=== PATIENT | male | born 1960 | race Caucasian/White ===

== ENCOUNTER 2017-11-28 15:32 | Inpatient (IN) ==
--- NOTE | 2017-11-28 16:06 | Emergency Department Note ---
Disposition Clinical Impression: Generalized weakness, GLORIA (acute kidney injury) Disposition: Admitted As Inpatient Condition: Fair Time of Disposition: 18:08 General Adult HPI - General Chief complaint: ED Dizziness Stated complaint: N/V Time Seen by Provider: 11/28/17 15:51 Source: patient Limitations: no limitations Nursing Notes Reviewed: Yes Vital Signs Reviewed: Yes - History of Present Illness HPI Narrative: Patient is a 56-year-old male who presents to [facility] ED with a chief complaint of generalized weakness, decreased appetite, nausea, difficulty with urination. Patient states he has an LVAD in place since 1 year prior. States this was done at the [facility]. States he has been evaluated up there recently and they have told him that nothing is wrong with him. However he is concerned that he is so weak at home that he is going to fall and pull his LVAD connection out and . Most recently he has had nausea with vomiting, blood in his stool and some generalized abdominal pain. Past medical history significant for CAD with stents, poor EF 15%, hypertension, hyperlipidemia. Onset (ago): day(s) Radiation: non-radiation Pain Severity: moderate Pain Scale: 8 Consistency: Worsening Improves with: nothing Worsens with: nothing Associated symptoms: Reports: loss of appetite, nausea/vomiting, weakness. Denies: chest pain, cough, fever/chills, shortness of breath Treatments Prior to Arrival: none - Related Data Home Medications Medication Instructions Recorded Confirmed Albuterol Neb [Proventil Neb] 2.5 mg IH TID 04/25/16 03/25/17 BuPROPion [Wellbutrin] 100 mg PO BID 05/05/16 03/25/17 Aspirin 81 mg PO DAILY 05/06/16 03/25/17 Metoprolol XL (24 HR) Succ [Toprol 25 mg PO DAILY 05/06/16 03/25/17 Xl] LORazepam [Ativan] 0.5 mg PO DAILY PRN 08/03/16 08/03/16 Warfarin Sodium 10 mg PO DAILY 07/10/17 07/10/17 Previous Rx's Medication Instructions Recorded Amiodarone [Cordarone] 200 mg PO DAILY #30 tablet 01/04/16 Atorvastatin [Lipitor] 40 mg PO HS #30 tablet 07/09/16 Bumetanide [Bumex] 2 mg PO BID #60 tablet 07/12/16 Docusate [Colace] 100 mg PO BID PRN #0 capsule 08/05/16 GuaiFENesin ER [Mucinex] 600 mg PO BID tbbp.12hr 08/05/16 Potassium Chloride 40 meq PO ONCE #2 tab.er.prt 08/05/16 Spironolactone [Aldactone] 25 mg PO DAILY #30 tablet 08/05/16 HydrOXYzine Pamoate [Vistaril] 50 mg PO TID 14 Days capsule 09/22/16 HYDROcodone/Acet 5/325 mg [[place] 1 tab PO Q6H PRN #16 tab 03/25/17 5-325 mg] HydrOXYzine Pamoate [Vistaril] 50 mg PO Q4-6H PRN #20 capsule 03/25/17 HYDROcodone/Acet 5/325 mg [[place] 1 tab PO Q4H PRN #3 tab 03/30/17 5-325 mg] HYDROcodone/Acet 5/325 mg [[place] 1 - 2 tab PO Q6H PRN #8 tab 06/03/17 5-325 mg] Ondansetron ODT [Zofran ODT] 8 mg SL Q12HR #9 tab.rapdis 06/12/17 OxyCODONE/APAP 5/325 [Percocet 1 each PO Q6HR PRN #1 tablet 06/29/17 5/325 MG] HYDROcodone/Acet 5/325 mg [[place] 1 tab PO Q6H PRN 3 Days #12 tab 10/25/17 5-325 mg] Oxycodone HCl/Acetaminophen 1 each PO Q4HR 3 Days #15 tablet 11/22/17 [Percocet 5-325 mg Tablet] Allergies Allergy/AdvReac Type Severity Reaction Status Date / Time Enoxaparin [From Lovenox] Allergy Itching Verified 11/22/17 15:43 lisinopril Allergy Itching Verified 11/22/17 15:43 All systems ED: reviewed and negative except as stated. Past Medical History - Past Medical History Attestation: Yes The following information was validated with the patient. Source: patient Medical history: Reports: asthma, atrial fibrillation, cardiomyopathy, CHF, COPD , GERD, GI bleed, hyperlipidemia, hypertension, myocardial infarction, SVT, thyroid disease Surgical history: Reports: angioplasty/stent, pacemaker/AICD, other (Cardiac ablation for atrial fibrillation, left ventricular assist device), AICD Psychiatric history: Reports: anxiety - Social History Smoking Status: Former smoker Smokeless Tobacco Status: No Alcohol use: Reports: rarely Drug use: Reports: none Physical Exam - General Limitations: no limitations General appearance: alert, in no apparent distress - Head Head exam: atraumatic, normocephalic, normal inspection - Eye Eye exam: Present: normal appearance, EOMI - ENT ENT exam: normal exam, normal oropharynx, mucous membranes moist - Neck Neck exam: Present: normal inspection, full ROM, trachea midline - Chest Chest inspection: Present: normal inspection, symmetric chest wall rise - Respiratory Respiratory exam: Present: normal lung sounds bilaterally - Cardiovascular Cardiovascular exam: Present: regular rate, normal rhythm, normal heart sounds - Abdominal Exam Abdominal exam: Present: soft, tenderness, normal bowel sounds. Absent: distention, guarding, rebound, rigidity Abdominal tenderness: Present: diffuse, mild - Extremities Exam Extremities exam: Present: normal inspection, full ROM. Absent: tenderness, pedal edema - Back Exam Back exam: Present: normal inspection, full ROM. Absent: tenderness - Neurological Exam Neurological exam: Present: alert, oriented X3 - Psychiatric Psychiatric exam: Present: normal affect, normal mood - Skin Skin exam: Present: warm, dry, intact, normal color Course Course Narrative: Patient seen and examined. Generalized weakness along with abdominal pain nausea and blood in the stool. Labwork ordered. We will do a CT scan of abd/ pelvis. Rectal exam shows faintly trace positive blood. Patient states he does not feel safe at home and feels like he is going to fall and . Per nursing, via Doppler and manual blood pressure, the mean arterial pressure was 100 in 2 different spots. - Reevaluation(s) Reevaluation #1: CT scan unremarkable. Lab work shows mildly elevated creatinine compared to his most recent creatinine of 1.14. Due to patient's generalized weakness, will admit for PT/ OT evaluation and possible placement. Time: 18:07 Vital Signs Temperature 97.4 F L 11/28/17 15:38 Pulse Rate 57 11/28/17 15:38 Respiratory Rate 16 11/28/17 15:38 Blood Pressure 87/68 11/28/17 15:38 O2 Sat by Pulse Oximetry 97 11/28/17 15:38 Temperature 97.4 F L 11/28/17 15:38 Pulse Rate 80 11/28/17 18:16 Respiratory Rate 18 11/28/17 18:16 Blood Pressure 87/68 11/28/17 15:38 O2 Sat by Pulse Oximetry 95 11/28/17 18:16 Oxygen Delivery Oxygen Delivery Room Air Medical Decision Making - Medical Records Medical records reviewed: Yes I reviewed the patient's medical records. - Lab Data Lab results reviewed: Yes I reviewed the patient's lab results. Result diagrams: 11/28/17 16:54 11/28/17 16:54 Lab Results 11/28/17 11/28/17 11/28/17 Range/Units 16:54 16:54 16:54 WBC 10.0 (4.3-11.1) K/mcL RBC 5.81 H (4.19-5.50) M/mcL Hgb 14.6 (12.9-16.9) g/dL Hct 47.3 (37.5-50.1) % MCV 81.4 L (83.0-100.0) fL MCH 25.1 L (28.0-33.3) pg MCHC 30.9 L (31.6-35.5) g/dL RDW 16.8 H (11.5-14.5) % Plt Count 205 (140-400) K/mcL MPV 10.6 (9.4-12.4) fL Immature Gran % 0.1 (0-4) % Seg Neutrophils % 81.2 % Lymphocytes % 10.9 % Monocytes % 6.8 % Eosinophils % 0.0 % Basophils % 1.0 % Neutrophils # 8.1 (1.6-8.9) K/mcL Lymphocytes # 1.1 (0.6-4.6) K/mcL Monocytes # 0.7 (0.0-1.3) K/mcL Eosinophils # 0.0 (0.0-0.6) K/mcL Basophils # 0.1 (0.0-0.2) K/mcL Sodium 134 L (136-145) mEq/L Potassium 3.7 (3.5-5.1) mEq/L Chloride 101 (98-107) mEq/L Carbon Dioxide 26 (23-29) mEq/L BUN 21 H (6-20) mg/dL Creatinine 1.51 H (0.70-1.30) mg/dL Est GFR ( Amer) 59 L (> 60) Est GFR (Non-Af Amer) 48 L (> 60) BUN/Creatinine Ratio 14 (6-26) Glucose 86 (70-105) mg/dL Calculated Osmolality 280 (280-300) Calcium 9.7 (8.6-10.3) mg/dL Magnesium 2.1 (1.6-2.6) mg/dL Total Bilirubin 0.8 (0.3-1.0) mg/dL AST 20 (13-39) Units/L ALT 20 (7-52) Units/L Alkaline Phosphatase 79 (34-104) Units/L Troponin I 0.03 (< 0.04) ng/mL Serum Total Protein 7.5 (6.4-8.9) g/dL Albumin 4.2 (3.5-5.7) g/dL Globulin 3.3 (2.4-3.5) g/dL Albumin/Globulin Ratio 1.3 (1.1-2.2) Lipase 10 L (11-82) Units/L Urine Color (Yellow) Urine Clarity (Clear) Urine pH (5.0-8.0) pH Units Ur Specific [place] (1.010-1.025) Urine Protein (Neg-Trace) mg/dL Urine Glucose (UA) (Normal) mg/dL Urine Ketones (Negative) mg/dL Urine Blood (Negative) Urine Nitrite (Negative) Urine Bilirubin (Negative) Urine Urobilinogen (Normal) mg/dL Ur Leukocyte Esterase (Negative) Urine Microscopic RBC (0-3) per hpf Urine Microscopic WBC (0-3) per hpf Ur Squamous Epith Cells (None-Few) per lpf Urine Bacteria (None-Few) per hpf Hyaline Casts (None-Few) per lpf Ur Culture Indicated? (NO) 11/28/17 Range/Units 17:38 WBC (4.3-11.1) K/mcL RBC (4.19-5.50) M/mcL Hgb (12.9-16.9) g/dL Hct (37.5-50.1) % MCV (83.0-100.0) fL MCH (28.0-33.3) pg MCHC (31.6-35.5) g/dL RDW (11.5-14.5) % Plt Count (140-400) K/mcL MPV (9.4-12.4) fL Immature Gran % (0-4) % Seg Neutrophils % % Lymphocytes % % Monocytes % % Eosinophils % % Basophils % % Neutrophils # (1.6-8.9) K/mcL Lymphocytes # (0.6-4.6) K/mcL Monocytes # (0.0-1.3) K/mcL Eosinophils # (0.0-0.6) K/mcL Basophils # (0.0-0.2) K/mcL Sodium (136-145) mEq/L Potassium (3.5-5.1) mEq/L Chloride (98-107) mEq/L Carbon Dioxide (23-29) mEq/L BUN (6-20) mg/dL Creatinine (0.70-1.30) mg/dL Est GFR ( Amer) (> 60) Est GFR (Non-Af Amer) (> 60) BUN/Creatinine Ratio (6-26) Glucose (70-105) mg/dL Calculated Osmolality (280-300) Calcium (8.6-10.3) mg/dL Magnesium (1.6-2.6) mg/dL Total Bilirubin (0.3-1.0) mg/dL AST (13-39) Units/L ALT (7-52) Units/L Alkaline Phosphatase (34-104) Units/L Troponin I (< 0.04) ng/mL Serum Total Protein (6.4-8.9) g/dL Albumin (3.5-5.7) g/dL Globulin (2.4-3.5) g/dL Albumin/Globulin Ratio (1.1-2.2) Lipase (11-82) Units/L Urine Color Yellow (Yellow) Urine Clarity Clear (Clear) Urine pH 7.5 (5.0-8.0) pH Units Ur Specific [place] 1.019 (1.010-1.025) Urine Protein 30 H (Neg-Trace) mg/dL Urine Glucose (UA) Normal (Normal) mg/dL Urine Ketones Negative (Negative) mg/dL Urine Blood Negative (Negative) Urine Nitrite Negative (Negative) Urine Bilirubin Negative (Negative) Urine Urobilinogen Normal (Normal) mg/dL Ur Leukocyte Esterase Negative (Negative) Urine Microscopic RBC 3-5 H (0-3) per hpf Urine Microscopic WBC 0-3 (0-3) per hpf Ur Squamous Epith Cells Many H (None-Few) per lpf Urine Bacteria None Seen (None-Few) per hpf Hyaline Casts None Seen (None-Few) per lpf Ur Culture Indicated? NO (NO) - Radiology Data Radiology results reviewed: Yes I reviewed the patient's radiology results. Chest X-Ray 11/28/17 15:51 IMPRESSION: 1. Stable cardiomegaly and configuration of a left ventricular assist device. 2. No acute abnormality. D/ / 11/28/2017 16:50:20 Bacilio Shukla MD / [facility] Interpreting Provider: Bacilio Shukla MD Abdomen/Pelvis CT 11/28/17 16:08 IMPRESSION: Stable noncontrast findings. No acute abnormality suspected. D/ / Kourtney Kc Cha, MD / Kourtney Kc Cha, MD Interpreting Provider: Kourtney Kc Cha, MD - EKG Data EKG #1 EKG attestation: Yes I reviewed and interpreted this EKG. EKG results narrative: EKG done at 1617 shows electronic ventricular pacemaker paced rhythm with a rate of [address] elevation or depression. Unchanged from prior EKG done 11/22/2017. Critical Care Time Critical Care Time: Yes Total Critical Care Time: 35 Attestation: Critical care time 35 minutes managing patient's weakness. Attestation Statement - Attestation Attestation: Patient was seen with resident physician. I reviewed the history, physical, assessment and plan, and agree with the findings. I also personally evaluated this patient and had [id number] time with this patient. 56-year-old male presents to the emergency Department chief complaint of generalized weakness. Patient states that he does not feel unwell anymore. He says he is not eating or drinking. He says he falls almost every time he tries to get up. He says he was seen at [facility] approximately week ago for same complaints the findings anything abnormal. 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 He says that he just not feeling well enough or safe at home at this point. On exam vital signs pulses normal he has decreased blood pressure, which is better than it usually is. Heart mechanical. Lungs clear. Abdomen soft nontender. Extremities very dry skin been as well. Neurologically intact no focal deficits. Psych patient appears somewhat depressed. ED course we will do workup for generalized weakness. Workup was largely unremarkable terms of lab testing x-ray the abdominal CT. His EKG shows a paced rhythm. However the patient just does not feel well not to go home and he has generalized weakness. He said he time he tries to stand up he feels like is going to fall. We spoke with the hospitalist service agreed to accept him here for admission and further evaluation and treatment. Critical care time 35 minutes. Agree with resident physician assessment plan.
[2017-11-28] MEDS ORDERED: 0.9 % Sodium Chloride 500 ML IVC ONE (16:09)
[2017-11-28 17:00] LABS: Basophils # 0.1 K/mcL (0.0-0.2); Hematocrit 47.3 % (37.5-50.1); Hemoglobin 14.6 g/dL (12.9-16.9); Immature Granulocytes % 0.1 % (0-4); Lymphocytes # 1.1 K/mcL (0.6-4.6); Lymphocytes % 10.9 %; Mean Corpuscular HGB Conc 30.9 g/dL (31.6-35.5); Mean Corpuscular Hemoglobin 25.1 pg (28.0-33.3); Mean Corpuscular Volume 81.4 fL (83.0-100.0); Mean Platelet Volume 10.6 fL (9.4-12.4); Monocytes # 0.7 K/mcL (0.0-1.3); Monocytes % 6.8 %; Neutrophils # 8.1 K/mcL (1.6-8.9); Platelet Count 205 K/mcL (140-400); Red Blood Count 5.81 M/mcL (4.19-5.50); Red Cell Distribution Width 16.8 % (11.5-14.5); Segmented Neutrophils % 81.2 %
[2017-11-28 17:26] LABS: Albumin 4.2 g/dL (3.5-5.7); Albumin/Globulin Ratio 1.3 (1.1-2.2); Bilirubin,Total 0.8 mg/dL (0.3-1.0); Calcium 9.7 mg/dL (8.6-10.3); Globulin 3.3 g/dL (2.4-3.5); Magnesium 2.1 mg/dL (1.6-2.6); Potassium 3.7 mEq/L (3.5-5.1); Total Protein 7.5 g/dL (6.4-8.9); Troponin I 0.03 ng/mL (< 0.04)
[2017-11-28 17:46] LABS: Bilirubin,Urine Negative (Negative); Blood,Urine Negative (Negative); Clarity,Urine Clear (Clear); Color,Urine Yellow (Yellow); Glucose,Urine (UA) Normal (Normal); Ketones,Urine Negative (Negative); Leukocyte Esterase,Urine Negative (Negative); Nitrite,Urine Negative (Negative); PH,Urine 7.5 pH Units (5.0-8.0); Protein,Urine 30 mg/dL (Neg-Trace); Specific Gravity,Urine 1.019 (1.010-1.025); Urobilinogen,Urine Normal (Normal)
[2017-11-28 17:48] LABS: Bacteria,Urine None Seen per hpf (None-Few); Hyaline Casts,Urine None Seen per lpf (None-Few); Squamous Epithelial Cell,Urine Many per lpf (None-Few); WBC,Urine 0-3 per hpf (0-3)
[2017-11-28] MEDS ORDERED: Acetaminophen 325 MG TABLET PO PRN (18:10)
[2017-11-28] MEDS ORDERED: Naloxone 0.4 MG/ML INJ IVP PRN (18:10)
[2017-11-28] MEDS ORDERED: *HR* HYDROcodone/Acet 5/325 mg TABLET PO ONE (18:17)
--- NOTE | 2017-11-28 18:23 | Internal Med History&Physical ---
Date of Encounter: 11/28/17 Time of Encounter: 18:20 Assessment and Plan (1) Generalized weakness Current visit: Yes Status: Acute Unclear etiology. Workup was unremarkable so far in the ED. There is a mild elevation in his creatinine however not exactly sure this is causing his symptoms. Patient also reportedly has some blood in the stools. We will check stools for blood. Hemoglobin is stable. c/s GI. The patient may just need to have PTOT evaluation and placement. He was given 500 mL bolus in the ED. I would be careful with further hydration given his known low ejection fraction of 15%. We will continue to monitor. (2) GI bleed Current visit: Yes Status: Acute consult GI. check FOBT. IV PPI BID. NPO after midnight. hgb stable. H/H in am. Qualifiers: GI bleed type/associated pathology: unspecified gastrointestinal hemorrhage type Qualified Code(s): K92.2 - Gastrointestinal hemorrhage, unspecified (3) GLORIA (acute kidney injury) Current visit: Yes Status: Acute Would not give any more fluids. Patient has a known EF of 15%. Labs in the morning. (4) CHF (congestive heart failure) Current visit: No Status: Acute Chronic. Not in exacerbation. Resume home meds. Qualifiers: Heart failure type: systolic Heart failure chronicity: chronic Qualified Code(s): I50.22 - Chronic systolic (congestive) heart failure (5) CAD (coronary artery disease) Current visit: No Status: Chronic Resume home meds. Qualifiers: Coronary Disease-Associated Artery/Lesion type: [place] artery [place] vs. transplanted heart: [place] heart Associated angina: with unspecified angina Qualified Code(s): I25.119 - Atherosclerotic heart disease of [place] coronary artery with unspecified angina pectoris (6) HTN (hypertension) Current visit: No Status: Chronic Resume home antihypertensives. Qualifiers: Hypertension type: unspecified Qualified Code(s): I10 - Essential (primary ) hypertension (7) Atrial fibrillation Current visit: Yes Status: Acute hold coumadin. Check INR STAT. 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 Internal Medicine - H&P: HPI Chief complaint: Weakness Admitted From: Emergency Dept Plans for Post Hospital Care: Home History of present illness: Mr. Scruggs is a 56 year old male with history of paroxysmal A. fib status post AV node ablation, ischemic dilated cardiomyopathy with an EF of 15% status post LVAD, retention, COPD, coronary disease with stents, history of CVA, chronic kidney disease, hyperlipidemia, GERD who presents to [facility] ED with a chief complaint of generalized weakness, decreased appetite, nausea, difficulty with urination. There is also reported blood in his stool and some generalized abdominal pain. Says he is seeing bright red blood with each stool the last 3 weeks. Has been weak the last 3 days or so. Uses a walker at times but not always. On coumadin. In the ED workup was mostly unremarkable except for some mild elevated creatinine. A CT abdomen and pelvis came back with no acute findings. Chest x-ray showed stable cardiomegaly and LVAD. Urinalysis with no UTI. Vitals were stable. He is afebrile. Denies any fever, chills, headache, blurry vision, chest pain, shortness of breath, diarrhea, constipation, neurological symptoms. Past Med Surg Social Fam HX - Past Medical History Medical history: asthma, atrial fibrillation, cardiomyopathy, CHF, COPD, GERD, GI bleed, hyperlipidemia, hypertension, myocardial infarction, SVT, thyroid disease Psychiatric history: anxiety - Past Surgical History Surgical History: angioplasty/stent, pacemaker/AICD, other (Cardiac ablation for atrial fibrillation, left ventricular assist device), AICD - Social History Smoking Status: Former smoker Smokeless Tobacco Status: No Alcohol use: rarely Drug use: none - Family History Father Adopted: No Family Member Ethnicity: Non- Living Status: Still Living Hx Family Cardiac Disorders: No Hx Family Respiratory Disorders: No Hx Family Cancer: No Hx Family GI Disorders: No Hx Family Endocrine Disorder: Yes Hx Family Neuromuscular Disorders: No Hx Family Neurologic Disorders: No Hx Family HEENT Disorders: No Hx Family Autoimmune Disorders: No Mother Adopted: No Family Member Ethnicity: Non- Living Status: Still Living Hx Family Cardiac Disorders: Yes (multiple RI) Hx Family Respiratory Disorders: No Hx Family Cancer: No Hx Family GI Disorders: No Hx Family Endocrine Disorder: Yes (DM) Hx Family Neuromuscular Disorders: No Hx Family Neurologic Disorders: Yes (,ledt side paralysis,shaking) Hx Family HEENT Disorders: Yes (glaucoma, multiple strep throat) Hx Family Autoimmune Disorders: No Internal Medicine - H&P: Meds Amiodarone [Cordarone] 200 mg PO DAILY #30 tablet 01/04/16 [Rx] Albuterol Neb [Proventil Neb] 2.5 mg IH TID 04/25/16 [History] BuPROPion [Wellbutrin] 100 mg PO BID 05/05/16 [History] Aspirin 81 mg PO DAILY 05/06/16 [History] Metoprolol XL (24 HR) Succ [Toprol Xl] 25 mg PO DAILY 05/06/16 [History] Atorvastatin [Lipitor] 40 mg PO HS #30 tablet 07/09/16 [Rx] Bumetanide [Bumex] 2 mg PO BID #60 tablet 07/12/16 [Rx] LORazepam [Ativan] 0.5 mg PO DAILY PRN 08/03/16 [History] Docusate [Colace] 100 mg PO BID PRN #0 capsule 08/05/16 [Rx] GuaiFENesin ER [Mucinex] 600 mg PO BID tbbp.12hr 08/05/16 [Rx] Potassium Chloride 40 meq PO ONCE #2 tab.er.prt 08/05/16 [Rx] Spironolactone [Aldactone] 25 mg PO DAILY #30 tablet 08/05/16 [Rx] HydrOXYzine Pamoate [Vistaril] 50 mg PO TID 14 Days capsule 09/22/16 [Rx] HYDROcodone/Acet 5/325 mg [[place] 5-325 mg] 1 tab PO Q6H PRN #16 tab 03/25/17 [Rx ] HydrOXYzine Pamoate [Vistaril] 50 mg PO Q4-6H PRN #20 capsule 03/25/17 [Rx] HYDROcodone/Acet 5/325 mg [[place] 5-325 mg] 1 tab PO Q4H PRN #3 tab 03/30/17 [Rx] HYDROcodone/Acet 5/325 mg [[place] 5-325 mg] 1 - 2 tab PO Q6H PRN #8 tab 06/03/17 [Rx] Ondansetron ODT [Zofran ODT] 8 mg SL Q12HR #9 tab.rapdis 06/12/17 [Rx] OxyCODONE/APAP 5/325 [Percocet 5/325 MG] 1 each PO Q6HR PRN #1 tablet 06/29/17 [ Rx] Warfarin Sodium 10 mg PO DAILY 07/10/17 [History] HYDROcodone/Acet 5/325 mg [[place] 5-325 mg] 1 tab PO Q6H PRN 3 Days #12 tab 10/25 [Rx] Oxycodone HCl/Acetaminophen [Percocet 5-325 mg Tablet] 1 each PO Q4HR 3 Days # 15 tablet 11/22/17 [Rx] 3 Allergy/AdvReac Type Severity Reaction Status Date / Time Enoxaparin [From Lovenox] Allergy Itching Verified 11/22/17 15:43 lisinopril Allergy Itching Verified 11/22/17 15:43 All Systems PM: A 10-system review of systems was performed and is negative for pertinent findings except as documented above in the HPI. Review of systems: Systems reviewed are negative except as mentioned above - Constitutional Vitals: Temp Pulse Resp BP Pulse Ox 97.4 F L 80 18 87/68 95 11/28/17 15:38 11/28/17 18:16 11/28/17 18:16 11/28/17 15:38 11/28/17 18:16 Exam: GEN: NAD HEENT: AT, NC, No cyanosis, oral mucosa is moist, No JVD Lymphatics: No lymphadenoapthy Eyes: Extrocular muscles intact, anicteric CVS:RRR. S1, S2, No m/r/g RESP: CTAB ABD: Soft, NT, ND, +BS EXT: No edema, No rashes, 2+ DP NEURO: Nonfocal, CN II-XII intact, No focal motor or sensory deficits Psych: Cooperative, Not anxious or depressed Internal Med - H&P Results - Labs CBC & Chem 7: 11/28/17 16:54 11/28/17 16:54 Labs: Short CBC 11/28/17 Range/Units 16:54 WBC 10.0 (4.3-11.1) K/mcL Hgb 14.6 (12.9-16.9) g/dL Hct 47.3 (37.5-50.1) % Plt Count 205 (140-400) K/mcL Neutrophils # 8.1 (1.6-8.9) K/mcL BMP 11/28/17 16:54 Sodium 134 L Potassium 3.7 Chloride 101 Carbon Dioxide 26 BUN 21 H Creatinine 1.51 H Glucose 86 Calcium 9.7 Cardiac Enzymes 11/28/17 Range/Units 16:54 Troponin I 0.03 (< 0.04) ng/mL Liver Function 11/28/17 Range/Units 16:54 Total Bilirubin 0.8 (0.3-1.0) mg/dL AST 20 (13-39) Units/L ALT 20 (7-52) Units/L Alkaline Phosphatase 79 (34-104) Units/L Albumin 4.2 (3.5-5.7) g/dL Urine 11/28/17 Range/Units 17:38 Urine Color Yellow (Yellow) Urine Clarity Clear (Clear) Urine pH 7.5 (5.0-8.0) pH Units Ur Specific [place] 1.019 (1.010-1.025) Urine Protein 30 H (Neg-Trace) mg/dL Urine Glucose (UA) Normal (Normal) mg/dL - Impressions ITS Impressions Chest X-Ray 11/28/17 15:51 IMPRESSION: 1. Stable cardiomegaly and configuration of a left ventricular assist device. 2. No acute abnormality. D/ / 11/28/2017 16:50:20 Bacilio Shukla MD / [facility] Interpreting Provider: Bacilio Shukla MD Abdomen/Pelvis CT 11/28/17 16:08 IMPRESSION: Stable noncontrast findings. No acute abnormality suspected. D/ / Kourtney Kc Cha, MD / Kourtney Kc Cha, MD Interpreting Provider: Kourtney Kc Cha, MD
[2017-11-28] MEDS ORDERED: Ondansetron 4 MG/2 ML VIAL IVP PRN (18:27)
[2017-11-28 18:39] LABS: INR 2.9; Prothrombin Time 32.5 Seconds (9.4-12.1)
[2017-11-28] MEDS ORDERED: *HR* Warfarin 3 MG TABLET PO ONE (23:54)
[2017-11-29] MEDS: *HR* OxyCODONE/APAP 5/325 TABLET PO PRN ×2 (00:03→20:47)
[2017-11-29] MEDS: *HR* LORazepam 0.5 MG TABLET PO SCH ×2 (00:04→09:26)
[2017-11-29 03:43] LABS: Basophils # 0.1 K/mcL (0.0-0.2); Basophils % 1.7 %; Hematocrit 42.7 % (37.5-50.1); Hemoglobin 13.2 g/dL (12.9-16.9); Immature Granulocytes % 0.3 % (0-4); Lymphocytes # 1.3 K/mcL (0.6-4.6); Lymphocytes % 18.8 %; Mean Corpuscular HGB Conc 30.9 g/dL (31.6-35.5); Mean Corpuscular Hemoglobin 25.1 pg (28.0-33.3); Mean Corpuscular Volume 81.2 fL (83.0-100.0); Mean Platelet Volume 10.8 fL (9.4-12.4); Monocytes # 0.6 K/mcL (0.0-1.3); Monocytes % 8.3 %; Neutrophils # 5.1 K/mcL (1.6-8.9); Platelet Count 170 K/mcL (140-400); Red Blood Count 5.26 M/mcL (4.19-5.50); Red Cell Distribution Width 16.5 % (11.5-14.5); Segmented Neutrophils % 70.9 %
[2017-11-29 04:02] LABS: BUN/Creatinine Ratio 13 (6-26); Blood Urea Nitrogen 19 mg/dL (6-20); Calcium 8.9 mg/dL (8.6-10.3); Carbon Dioxide 25 mEq/L (23-29); Chloride 104 mEq/L (98-107); Glucose 81 mg/dL (70-105); Magnesium 2.1 mg/dL (1.6-2.6); Osmolality,Calculated 281 (280-300); Potassium 3.7 mEq/L (3.5-5.1); Sodium 135 mEq/L (136-145); eGFR For African Americans > 60 (> 60); eGFR For Non-African Americans 52 (> 60)
[2017-11-29 04:03] LABS: INR 2.4; Prothrombin Time 26.6 Seconds (9.4-12.1)
[2017-11-29] MEDS: Pantoprazole 40 MG VIAL IVP SCH ×2 (05:33→18:04)
[2017-11-29] MEDS ORDERED: *HR* HYDROcodone/Acet 5/325 mg TABLET PO PRN (10:12)
[2017-11-29] MEDS ORDERED: *HR* LORazepam 0.5 MG TABLET PO PRN (10:12)
--- NOTE | 2017-11-29 10:25 | Internal Med Progress Note ---
Date of Encounter: 11/29/17 Time of Encounter: 10:23 - Assessment and plan (1) Generalized weakness Current Visit: Yes Status: Acute Assessment and plan: Unclear etiology. Workup was unremarkable so far in the ED. There was mild elevation in his creatinine but he is around baseline. Patient reports bloody stools. Check FOBT. H&H is stable. c/s GI. The patient may just need to have PTOT evaluation and placement. He was given 500 mL bolus in the ED. I would be careful with further hydration given his known low ejection fraction of 15%. We will continue to monitor. (2) GI bleed Current Visit: Yes Status: Acute Assessment and plan: consult GI. check FOBT. IV PPI BID. NPO . Stable H&H. Qualifiers: GI bleed type/associated pathology: unspecified gastrointestinal hemorrhage type Qualified Code(s): K92.2 - Gastrointestinal hemorrhage, unspecified (3) GLORIA (acute kidney injury) Current Visit: Yes Status: Acute Assessment and plan: No further IV fluids given low EF. Creatinine is around his baseline. (4) CHF (congestive heart failure) Current Visit: No Status: Acute Assessment and plan: Chronic. Not in exacerbation. Resume home meds. Has an LVAD Qualifiers: Heart failure type: systolic Heart failure chronicity: chronic Qualified Code(s): I50.22 - Chronic systolic (congestive) heart failure (5) CAD (coronary artery disease) Current Visit: No Status: Chronic Assessment and plan: Resume home meds. Qualifiers: Coronary Disease-Associated Artery/Lesion type: [place] artery [place] vs. transplanted heart: [place] heart Associated angina: with unspecified angina Qualified Code(s): I25.119 - Atherosclerotic heart disease of [place] coronary artery with unspecified angina pectoris (6) HTN (hypertension) Current Visit: No Status: Chronic Assessment and plan: Resume antihypertensives. The pressure stable. Qualifiers: Hypertension type: unspecified Qualified Code(s): I10 - Essential (primary ) hypertension (7) Atrial fibrillation Current Visit: Yes Status: Acute Assessment and plan: INR 2.4. Coumadin is on hold until GI evaluation. He will be resumed afterwards. Resume beta calin and amiodarone. Qualifiers: Atrial fibrillation type: chronic Qualified Code(s): I48.2 - Chronic atrial fibrillation (8) DVT prophylaxis Current Visit: No Status: Acute Assessment and plan: INR is 2.4. SCDs - Subjective Interval history: Patient seen and examined. No acute events. Afebrile. Feels nauseous. Admitted yesterday with generalized weakness, decreased appetite, nausea, reported blood in stools. - Constitutional Vitals: Temp Pulse Resp BP Pulse Ox 97.4 F L 80 18 107/91 94 11/29/17 07:58 11/29/17 07:58 11/29/17 07:58 11/28/17 19:03 11/29/17 07:58 Exam: GEN: NAD CVS: RRR. S1, S2, No m/r/g RESP: CTAB ABD: Soft, NT, ND, +BS EXT: No edema. 2+ DP. No rashes NEURO: Nonfocal Internal Medicine: Result - Labs CBC & Chem 7: 11/29/17 03:30 11/29/17 03:30 Labs: Short CBC 11/29/17 Range/Units 03:30 WBC 7.1 (4.3-11.1) K/mcL Hgb 13.2 (12.9-16.9) g/dL Hct 42.7 (37.5-50.1) % Plt Count 170 (140-400) K/mcL Neutrophils # 5.1 (1.6-8.9) K/mcL BMP 11/29/17 03:30 Sodium 135 L Potassium 3.7 Chloride 104 Carbon Dioxide 25 BUN 19 Creatinine 1.41 H Glucose 81 Calcium 8.9 - ABG Interpretation ABG results: PT/INR, D-dimer PT 26.6 Seconds (9.4-12.1) H 11/29/17 03:30 Consult Discharge Plan - Plan Referrals: Damir Song DO [Primary Care Provider] - 12/07/17 3:00 pm (this appointment is across from [facility] in the [place] [facility]. Please show up 15 mins earky for your appointment, if you need to cancel please call [phone] within 24 hours of your appointment.)
--- NOTE | 2017-11-29 11:37 | Gastroenterology Consult Note ---
<Mary Carmen Wolf - Last Filed: 11/29/17 11:56> Date of Encounter: 11/29/17 Time of Encounter: 09:50 - Assessment and plan (1) Rectal bleeding Current Visit: Yes Status: Acute Assessment and plan: May be related to hemorrhoids vs ischemic colitis. Hgb is 13.2, INR is 2.4. He needs colonoscopy but is a poor candidate due to chronic anticoagulation and severe cardiomyopathy requiring LVAD. Will monitor H&H. (2) Abdominal pain Current Visit: No Status: Acute Qualifiers: Abdominal location: unspecified location Qualified Code(s): R10.9 - Unspecified abdominal pain - Time Spent With Patient Total time spent is greater than 50% in coordination of care (as documented) at patient's floor/unit and/or counseling patient: GI History of Present Illness - Data of Consult Patient: new to practice Consult date: 11/29/17 Requesting Physician: Ascencion Prado - Consult Narrative Reason for consult: rectal bleeding History of present illness: Mr. Scruggs is a 56 year old male with history of paroxysmal A. fib status post AV node ablation, ischemic dilated cardiomyopathy with an EF of 15% status post LVAD, COPD, coronary disease with stents x 5 (last 2015), history of CVA, chronic kidney disease, hyperlipidemia, GERD. He presents to [facility] ED with a 2 week history of generalized weakness, decreased appetite, nausea, difficulty with urination, and increased dyspnea on exertion. He also complains of bilateral lower quadrant abdominal pain and bright red rectal bleeding x 3 days. He reports some rectal pain when passing stools and also reports constipation. He is on coumadin. In the ED workup was mostly unremarkable except for some mild elevated creatinine. A CT abdomen and pelvis came back with no acute findings. Chest x-ray showed stable cardiomegaly and LVAD. Urinalysis with no UTI. Vitals were stable. He is afebrile. Denies any fever, chills, headache, blurry vision, chest pain. Labs were reviewed and Hgb 13.2, INR 2.4. Colonoscopy: flex sig 2016 [facility] had 2 polyps not removed EGD: none NSAIDS/ASA: Anticoagulants: coumadin 11/29 0003 Past Med Surg Social Fam HX - Past Medical History Medical history: asthma, atrial fibrillation, cardiomyopathy, CHF, COPD, GERD, GI bleed, hyperlipidemia, hypertension, myocardial infarction, SVT, thyroid disease Psychiatric history: anxiety - Past Surgical History Surgical History: angioplasty/stent, pacemaker/AICD, other, AICD - Social History Smoking Status: Current some day smoker Smokeless Tobacco Status: No Alcohol use: rarely Drug use: none - Family History Father Adopted: No Family Member Ethnicity: Non- Living Status: Still Living Hx Family Cardiac Disorders: No Hx Family Respiratory Disorders: No Hx Family Cancer: No Hx Family GI Disorders: No Hx Family Endocrine Disorder: Yes Hx Family Neuromuscular Disorders: No Hx Family Neurologic Disorders: No Hx Family HEENT Disorders: No Hx Family Autoimmune Disorders: No Mother Adopted: No Age: 74 Family Member Ethnicity: Non- Living Status: Cause of : cancer Hx Family Cardiac Disorders: Yes (multiple [place]) Hx Family Respiratory Disorders: No Hx Family Cancer: Yes Hx Family GI Disorders: No Hx Family Endocrine Disorder: Yes (DM) Hx Family Neuromuscular Disorders: No Hx Family Neurologic Disorders: Yes (,ledt side paralysis,shaking) Hx Family HEENT Disorders: Yes (glaucoma, multiple strep throat) Hx Family Autoimmune Disorders: No Review of Systems: GI: as per [place] GENERAL: denies fever, has some chills EYES: denies yellow discoloration ENT: denies pain with swallowing or difficulty swallowing CARDIO: denies chest pain, palpitations RESP: increased Shortness of breath with exertion : denies change in color of urine NEURO: worsening weakness HEME: Denies any bruising MS: chronic back and moe nt pain. DERM: denies rash or itching PSYCH: history of anxiety and depression - Constitutional Vitals: Temp Pulse Resp BP Pulse Ox 98.2 F 77 16 107/91 93 11/29/17 11:01 11/29/17 11:01 11/29/17 11:01 11/28/17 19:03 11/29/17 11:01 Exam: CONSTITUTIONAL:~alert, no acute distress.~HEAD:~normocephalic.~EYES:~no jaundice.~NECK:~no obvious swelling.~HEART:~whirring of LVAD noted on auscultation, CM showd paced rhythm.~LUNGS:~bilateral fair air entry.~ABDOMEN:~ non distended, soft, tender BLQ, no masses pulpable, no organomegaly, LVAD catheter noted, dressing dry and intact no drainage or redness noted.~RECTAL EXAM:~Deferred.~EXTREMITIES:~no clubbing, cyanosis or edema.~SKIN:~no stigmata of chronic liver disease, brown discoloration noted to bilateral lower legs.~ NEUROLOGIC:~no obvious focal defect.~~~~ Results - Labs CBC & Chem 7: 11/29/17 03:30 03 03:30 Labs: Last Result Calcium 8.9 mg/dL (8.6-10.3) 11/29/17 03:30 Troponin I 0.03 ng/mL (< 0.04) 11/28/17 16:54 Entire Visit Hgb 13.2 g/dL (12.9-16.9) 11/29/17 03:30 Hct 42.7 % (37.5-50.1) 11/29/17 03:30 PT 26.6 Seconds (9.4-12.1) H 11/29/17 03:30 Total Bilirubin 0.8 mg/dL (0.3-1.0) 11/28/17 16:54 AST 20 Units/L (13-39) 11/28/17 16:54 ALT 20 Units/L (7-52) 11/28/17 16:54 Lipase 10 Units/L (11-82) L 11/28/17 16:54 - ABG ABG results: PT/INR, D-dimer PT 26.6 Seconds (9.4-12.1) H 11/29/17 03:30 Consult Discharge Plan - Plan Referrals: Damir Song DO [Primary Care Provider] - 12/07/17 3:00 pm (this appointment is across from [facility] in the [facility]. Please show up 15 mins earky for your appointment, if you need to cancel please call [phone] within 24 hours of your appointment.) <Lavern Linton - Last Filed: 11/29/17 17:31> Date of Encounter: 11/29/17 Time of Encounter: 14:00 - Time Spent With Patient Total time spent is greater than 50% in coordination of care (as documented) at patient's floor/unit and/or counseling patient: GI History of Present Illness - Data of Consult Requesting Physician: Ascencion Prado - Consult Narrative History of present illness: Mr. Scruggs is a 56 year old male - Constitutional Vitals: Temp Pulse Resp BP Pulse Ox 97.9 F 80 16 107/91 94 11/29/17 16:10 11/29/17 16:10 11/29/17 16:26 11/28/17 19:03 11/29/17 16:26 Results - Labs CBC & Chem 7: 11/29/17 03:30 11/29/17 03:30 Labs: Last Result Calcium 8.9 mg/dL (8.6-10.3) 11/29/17 03:30 Troponin I 0.03 ng/mL (< 0.04) 11/28/17 16:54 Entire Visit Hgb 13.2 g/dL (12.9-16.9) 11/29/17 03:30 Hct 42.7 % (37.5-50.1) 11/29/17 03:30 PT 26.6 Seconds (9.4-12.1) H 11/29/17 03:30 Total Bilirubin 0.8 mg/dL (0.3-1.0) 11/28/17 16:54 AST 20 Units/L (13-39) 11/28/17 16:54 ALT 20 Units/L (7-52) 11/28/17 16:54 Lipase 10 Units/L (11-82) L 11/28/17 16:54 - ABG ABG results: PT/INR, D-dimer PT 26.6 Seconds (9.4-12.1) H 11/29/17 03:30 - Attending Attestation I have personally performed a face to face evaluation on this patient. I have reviewed and agree with the care plan. History and Exam by me shows:n Pt with anemia. rectal bleed. EGD/colon tomorrow if INR < 2. Hold coumadin tonight
[2017-11-29] MEDS: hydrOXYzine pamoate 25 MG CAPSULE PO SCH ×2 (14:07→20:45)
[2017-11-29] MEDS: *HR* Amiodarone 200 MG TABLET PO SCH (14:07)
--- NOTE | 2017-11-29 14:15 | Event Note ---
Date of Encounter: 11/29/17 Time of Encounter: 14:[address] Linton. Plans for colonoscopy tomorrow. Patient is worried about not being on Coumadin. His INR is therapeutic still. Will continue to hold tonight. GI will do the scope tomorrow if INR allows.
[2017-11-29] MEDS ORDERED: SODIUM CHLORIDE/NAHCO3/KCL/PEG 4,000 ML SOLN.RECON PO ONE ×2 (14:37→17:00)
[2017-11-29] MEDS ORDERED: Albuterol 2.5 MG/3 ML NEBULIZER ONE (15:44)
[2017-11-29] MEDS: Bumetanide 1 MG TABLET PO SCH (16:22)
[2017-11-29] MEDS: Sulfamethoxazole/Trimeth SS 1 TAB PO SCH (16:22)
[2017-11-29] MEDS: Albuterol 2.5 MG/3 ML NEBULIZER IH SCH ×2 (16:23→23:52)
[2017-11-29] MEDS ORDERED: Warfarin perPT PO PRN (18:00)
--- NOTE | 2017-11-29 20:13 | Electrocardiograph Report ---
[place] [id number] Test Date: 2017-11-28 Pat Name: Alberto Scruggs Department: 103 Room: 2N12 Gender: M Religious Educator: JOSEF : [id number] Requested By: Marisol Villanueva Order Number: [id number] Reading MD: Severiano Hylton MD Measurements Intervals Lulu Rate: 80 P: MO: 0 QRS: 141 QRSD: 183 T: -17 QT: 426 QTc: 461 Interpretive Statements ELECTRONIC VENTRICULAR PACEMAKER ABNORMAL RHYTHM ECG Electronically Signed On 11-29-2017 20:12:23 EDT by Severiano Hylton MD
[2017-11-29] MEDS: hydrALAZINE 25 MG TABLET PO SCH (20:45)
[2017-11-29] MEDS: *HR* LORazepam 0.5 MG TABLET PO PRN (20:45)
[2017-11-30 05:02] LABS: INR 2.4; Prothrombin Time 25.8 Seconds (9.4-12.1)
[2017-11-30] MEDS: Pantoprazole 40 MG VIAL IVP SCH ×2 (05:54→18:10)
[2017-11-30] MEDS: Albuterol 2.5 MG/3 ML NEBULIZER IH PRN (08:08)
[2017-11-30] MEDS: hydrOXYzine pamoate 25 MG CAPSULE PO SCH ×3 (08:10→21:03)
[2017-11-30] MEDS: *HR* OxyCODONE/APAP 5/325 TABLET PO PRN ×2 (08:10→21:03)
[2017-11-30] MEDS: Spironolactone 25 MG TABLET PO SCH (08:10)
[2017-11-30] MEDS: Sulfamethoxazole/Trimeth SS 1 TAB PO SCH (08:10)
[2017-11-30] MEDS: *HR* Amiodarone 200 MG TABLET PO SCH (08:10)
[2017-11-30] MEDS: hydrALAZINE 25 MG TABLET PO SCH ×2 (08:10→21:03)
[2017-11-30] MEDS: Bumetanide 1 MG TABLET PO SCH ×2 (08:10→18:10)
--- NOTE | 2017-11-30 11:25 | Internal Med Progress Note ---
<Luis Manuel Hutson - Last Filed: 11/30/17 11:22> Date of Encounter: 11/30/17 Time of Encounter: 11:00 - Assessment and plan (1) Generalized weakness Current Visit: Yes Status: Acute Assessment and plan: Unclear etiology, patient reports feeling generalized weakness for months that has become worse recently Workup was unremarkable so far, though patient reports hematachezia No obvious signs of infection Patient afebrile, white blood cell count normal, UA unremarkable, chest x- ray unremarkable, and CT abdomen/pelvis negative Renal function at baseline Patient reports bloody stools H&H is stable He was given 500 mL bolus in the ED Recommend caution with further fluids given his known low ejection fraction of 15% GI has been consulted and plan for a colonoscopy today appreciate recommendations PTOT evaluation and treatment (2) GI bleed Current Visit: Yes Status: Acute Assessment and plan: Patient reports hematochezia No fecal occult blood performed Hemoglobin and hematocrit stable Patient nothing by mouth except for bowel prep for colonoscopy today Continue pantoprazole 40 mg IV BID Wait for results of colonoscopy today Qualifiers: GI bleed type/associated pathology: unspecified gastrointestinal hemorrhage type Qualified Code(s): K92.2 - Gastrointestinal hemorrhage, unspecified (3) CHF (congestive heart failure) Current Visit: No Status: Acute Assessment and plan: Chronic congestive heart failure from ischemic dilated cardiomyopathy LVAD in place Resume home medications Caution with additional IVF Qualifiers: Heart failure type: systolic Heart failure chronicity: chronic Qualified Code(s): I50.22 - Chronic systolic (congestive) heart failure (4) Atrial fibrillation Current Visit: No Status: Chronic Assessment and plan: Currently therapeutic INR Coumadin on hold for colonoscopy We will resume Coumadin following procedure Qualifiers: Atrial fibrillation type: paroxysmal Qualified Code(s): I48.0 - Paroxysmal atrial fibrillation (5) HTN (hypertension) Current Visit: No Status: Chronic Assessment and plan: Stable Resume home medications Qualifiers: Hypertension type: unspecified Qualified Code(s): I10 - Essential (primary ) hypertension (6) DVT prophylaxis Current Visit: No Status: Acute Assessment and plan: INR 2.[address] resume coumadin following colonoscopy (7) Presence of left ventricular assist device (LVAD) Current Visit: Yes Status: Acute - Subjective Interval history: Patient reports doing well today. He states he has had improvement in his general weakness, but still feels weak overall. When asked about his continued hematochezia, he is unable to answer stating that since he started taking the bowel prep he has been unable to tell. He generally has a little bit of an appetite. He states several months duration. - Constitutional Vitals: Temp Pulse Resp BP Pulse Ox 98.4 F 81 18 129/96 94 11/30/17 04:51 11/30/17 04:51 11/30/17 08:08 11/29/17 19:04 11/30/17 08:08 General appearance: Present: A&O X 3, pleasant, no acute distress, underweight, answers questions appropriately Exam: General: Cooperative, pleasant, no acute distress, alert and oriented 3, answers questions appropriately HEENT: Normocephalic, atraumatic, neck supple, trachea midline, Conjunctiva pink , sclera anicteric, oral mucosa moist, no orophargeal erythema or exudates Respiratory: No accessory muscle usage, clear to auscultation bilaterally, difficult to auscultate due to presence of LVAD Cardiovascular: LVAD present GI/abdominal: Nondistended, soft, normal bowel sounds, no peritoneal signs, LVAD leads present in right anterior abdomen, mild tenderness to palpation Extremities: No calf tenderness, noncyanotic, no pedal edema appreciated, warm, lower extremity pulses palpable and symmetrical Neurological: Alert and oriented 3, no facial droop, no focal deficits Skin: Dry, intact, normal color Internal Medicine: Result - Labs CBC & Chem 7: 11/29/17 03:30 11/29/17 03:30 - ABG Interpretation ABG results: PT/INR, D-dimer PT 25.8 Seconds (9.4-12.1) H 11/30/17 03:54 Consult Discharge Plan - Plan Referrals: Damir Song DO [Primary Care Provider] - 12/07/17 3:00 pm (this appointment is across from [facility] in the [facility]. Please show up 15 mins earky for your appointment, if you need to cancel please call [phone] within 24 hours of your appointment.) Lavern Linton MD [Partnered Physician] - (SENT WEB REQUEST ON 11-30-17 @ [id number]) <Raul Jalloh H - Last Filed: 11/30/17 14:03> Date of Encounter: 11/30/17 - Assessment and plan (1) Generalized weakness Current Visit: Yes Status: Acute (2) GI bleed Current Visit: Yes Status: Acute Qualifiers: GI bleed type/associated pathology: unspecified gastrointestinal hemorrhage type Qualified Code(s): K92.2 - Gastrointestinal hemorrhage, unspecified (3) CHF (congestive heart failure) Current Visit: No Status: Acute Qualifiers: Heart failure type: systolic Heart failure chronicity: chronic Qualified Code(s): I50.22 - Chronic systolic (congestive) heart failure (4) Atrial fibrillation Current Visit: No Status: Chronic Qualifiers: Atrial fibrillation type: paroxysmal Qualified Code(s): I48.0 - Paroxysmal atrial fibrillation (5) HTN (hypertension) Current Visit: No Status: Chronic Qualifiers: Hypertension type: unspecified Qualified Code(s): I10 - Essential (primary ) hypertension (6) DVT prophylaxis Current Visit: No Status: Acute (7) Presence of left ventricular assist device (LVAD) Current Visit: Yes Status: Acute - Constitutional Vitals: Temp Pulse Resp BP Pulse Ox 97.7 F 82 20 129/96 94 11/30/17 11:39 11/30/17 11:39 11/30/17 11:39 11/29/17 19:04 11/30/17 08:08 Internal Medicine: Result - Labs CBC & Chem 7: 11/29/17 03:30 11/29/17 03:30 - ABG Interpretation ABG results: PT/INR, D-dimer PT 25.8 Seconds (9.4-12.1) H 11/30/17 03:54 - Attending Attestation near syncope consider orthostatic hypotension, will try to measure BP with doppler due to LVAD order CBC BMP GI to scope him tomorrow after prep consider transfer to [facility] HOld coumadin I examined this patient and my medical decision-making was reviewed with the Resident Physician. I agree with the documented findings, disposition and treatment plan as described except to the extent set forth below.
[2017-11-30] MEDS ORDERED: 0.9 % Sodium Chloride 500 ML IVC ONE (13:38)
[2017-11-30] MEDS ORDERED: 0.9 % Sodium Chloride 500 ML ONE (13:40)
[2017-11-30 14:31] LABS: Hemoglobin 13.1 g/dL (12.9-16.9)
[2017-11-30] MEDS ORDERED: Polyethylene Glycol 3350 255 GM POWDER PO ONE (15:00)
[2017-11-30 15:28] LABS: Calcium 8.9 mg/dL (8.6-10.3); Magnesium 1.9 mg/dL (1.6-2.6); Potassium 3.6 mEq/L (3.5-5.1)
--- NOTE | 2017-11-30 19:12 | Anesthesia Evaluation PreOp ---
Date of Encounter: 11/30/17 Time of Encounter: 19:10 - Past History Planned Operation: EGD and colonsocopy Cardiac History: CHF (Impressions: Severely dilated left ventricle. Severe left ventricular systolic dysfunction, LVEF 15%. See diagram below regarding regional wall motion abnormalities. Mildly dilated right ventricle with mild RV hypokinesis. A device lead was visualized in the right atrium and right ventricle. Severely dilated left atrium. Severely dilated right atrium. Moderate -severe mitral regurgitation. Mild tricuspid regurgitation. Mild pulmonic regurgitation. Severe pulmonary hypertension. Estimated RVSP = 68 mmHg.), HTN, Arrhythmia (hx SVT, afib), Cardiac Stent (Patient with a recent left heart catheterization and placement of ABEL to the left anterior descending artery in February 2016 at [facility].), Pacemaker/ICD (AICD), Other (Left ventricular assist device) Pulmonary History: Asthma, COPD EMERGENCY MEDICAL TECHNICIAN/DRIVER History: Other (anxiety) Other Medical History: Renal (GLORIA), GERD, Other (GI bleed) Anesthesia History: No Prior Anesthetic Complications, Past Anesthesia (AICD,) Alcohol Use: rarely Drug use: none Medications and Allergies Amiodarone [Cordarone] 100 mg PO DAILY 11/28/17 [History] Aspirin [Lo-Dose Aspirin EC] 81 mg PO DAILY 11/28/17 [History] Atorvastatin [Lipitor] 40 mg PO HS 11/28/17 [History] BuPROPion [Wellbutrin] 100 mg PO BID 11/28/17 [History] Bumetanide [Bumex] 2 mg PO BID PRN 11/28/17 [History] HydrOXYzine Pamoate [Vistaril] 50 mg PO TID 11/28/17 [History] Metoprolol [Lopressor] 25 mg PO DAILY 11/28/17 [History] Ondansetron [Zofran ODT] 8 mg SL BID 11/28/17 [History] Oxycodone HCl/Acetaminophen [Percocet 5-325 mg Tablet] 1 each PO Q4H 11/28/17 [ History] Potassium Chloride 40 meq PO BID 11/28/17 [History] Spironolactone [Aldactone] 25 mg PO DAILY 11/28/17 [History] Hydralazine HCl 50 mg PO BID 11/29/17 [History] Ipratropium/Albuterol Sulfate [Combivent Respimat Inhal [place]] 1 puff IH QID 09/06 [History] LORazepam [Lorazepam] 2 mg PO DAILY PRN 11/29/17 [History] Sulfamethoxazole/Trimeth SS [Bactrim SS] 1 tab PO DAILY 11/29/17 [History] Warfarin [Coumadin] 6 mg PO TUTH 11/29/17 [History] Warfarin [Coumadin] 8 mg PO SUMOWEFRSA 11/29/17 [History] 3 Allergy/AdvReac Type Severity Reaction Status Date / Time carvedilol Allergy Severe Anaphylaxis Verified 11/30/17 14:24 furosemide [From Lasix] Allergy Severe Anaphylaxis Verified 11/30/17 14:22 nitroglycerin Allergy Severe Anaphylaxis Verified 11/30/17 14:24 aspirin Allergy Mild Anaphylaxis Verified 11/30/17 14:23 Enoxaparin [From Lovenox] Allergy Itching Verified 11/22/17 15:43 lisinopril Allergy Itching Verified 11/22/17 15:43 - Meds/Allergy Pre-op Review Medications Reviewed: Yes Allergies Reviewed: Yes Beta Blockers on Current Med List: Yes Anesthesia Results - Labs 11/30/17 14:07 11/30/17 14:07 - Imaging EKG: report reviewed (Interpretive Statements ELECTRONIC VENTRICULAR PACEMAKER ABNORMAL RHYTHM ECG Electronically Signed On 11-29-2017 20:12:23 EDT by Severiano Hylton MD) Chest x-ray: report reviewed ( XR/XR chest 1V portable IMPRESSION: 1. Stable cardiomegaly and configuration of a left ventricular assist device. 2. No acute abnormality.) Anesthesia Exam Vital Signs/O2 Sat, Most Current Temp Pulse Resp BP Pulse Ox 99.2 F 80 14 129/96 91 11/30/17 15:32 11/30/17 15:32 11/30/17 15:32 11/29/17 19:04 11/30/17 15:32 Height: 1.83m Weight: 73kg - HEENT Pupil (Motor): Pupils equal, EOMI
[2017-11-30] MEDS ORDERED: *HR* Warfarin 3 MG TABLET PO SCH (21:00)
[2017-11-30] MEDS: *HR* LORazepam 0.5 MG TABLET PO PRN (21:03)
[2017-12-01 03:52] LABS: Basophils # 0.1 K/mcL (0.0-0.2); Basophils % 1.7 %; Eosinophils % 0.3 %; Hematocrit 43.3 % (37.5-50.1); Hemoglobin 13.2 g/dL (12.9-16.9); Immature Granulocytes % 0.3 % (0-4); Lymphocytes # 1.3 K/mcL (0.6-4.6); Mean Corpuscular HGB Conc 30.5 g/dL (31.6-35.5); Mean Corpuscular Volume 82.2 fL (83.0-100.0); Mean Platelet Volume 11.9 fL (9.4-12.4); Monocytes # 0.6 K/mcL (0.0-1.3); Monocytes % 8.3 %; Neutrophils # 5.3 K/mcL (1.6-8.9); Platelet Count 186 K/mcL (140-400); Red Blood Count 5.27 M/mcL (4.19-5.50); Red Cell Distribution Width 16.6 % (11.5-14.5); Segmented Neutrophils % 71.4 %
[2017-12-01 03:59] LABS: INR 1.9
[2017-12-01] MEDS: Pantoprazole 40 MG VIAL IVP SCH (05:19)
[2017-12-01 05:23] LABS: Potassium 3.8 mEq/L (3.5-5.1)
[2017-12-01] MEDS: Bumetanide 1 MG TABLET PO SCH ×2 (09:00→16:03)
[2017-12-01] MEDS: Spironolactone 25 MG TABLET PO SCH (09:01)
[2017-12-01] MEDS: Sulfamethoxazole/Trimeth SS 1 TAB PO SCH (09:01)
[2017-12-01] MEDS: *HR* Amiodarone 200 MG TABLET PO SCH (09:01)
[2017-12-01] MEDS: hydrOXYzine pamoate 25 MG CAPSULE PO SCH ×3 (09:01→20:37)
[2017-12-01] MEDS: hydrALAZINE 25 MG TABLET PO SCH ×2 (09:02→20:37)
--- NOTE | 2017-12-01 10:48 | Discharge Summary ---
Addendum entered and electronically signed by Raul Jalloh MD 13:18: discharged on 12/02/17 Original Note: <Luis Manuel Hutson - Last Filed: 12/02/17 11:09> - NOTES TO OUTPATIENT PROVIDER Notes to Outpatient Provider: Please follow with [facility] in 1-2 weeks for evaulation of lightheadedness and rectal bleeding Orders not resulted at time of discharge: Pending orders 12/02/17 04:00 PT/INR [Prothrombin Time INR] [COAG] AM 0400 12/03/17 04:00 PT/INR [Prothrombin Time INR] [COAG] AM 0400 12/04/17 04:00 PT/INR [Prothrombin Time INR] [COAG] AM 0400 12/05/17 04:00 PT/INR [Prothrombin Time INR] [COAG] AM 0400 12/06/17 04:00 PT/INR [Prothrombin Time INR] [COAG] AM 0400 Date of Encounter: 12/02/17 Time of Encounter: 09:15 - Discharge Diagnosis (1) Generalized weakness Priority: Primary Status: Acute (2) GI bleed Priority: Primary Status: Suspected Qualifiers: GI bleed type/associated pathology: unspecified gastrointestinal hemorrhage type Qualified Code(s): K92.2 - Gastrointestinal hemorrhage, unspecified (3) CHF (congestive heart failure) Priority: Primary Status: Chronic Qualifiers: Heart failure type: systolic Heart failure chronicity: chronic Qualified Code(s): I50.22 - Chronic systolic (congestive) heart failure (4) Atrial fibrillation Priority: Primary Status: Chronic Qualifiers: Atrial fibrillation type: paroxysmal Qualified Code(s): I48.0 - Paroxysmal atrial fibrillation (5) HTN (hypertension) Priority: Primary Status: Chronic Qualifiers: Hypertension type: unspecified Qualified Code(s): I10 - Essential (primary ) hypertension (6) DVT prophylaxis Priority: Secondary Status: Acute (7) Presence of left ventricular assist device (LVAD) Priority: Primary Status: Chronic Hospital course: Mr. Scruggs is a 56 year old male with medical history of paroxysmal atrial fibrillation currently on Coumadin and with pacemaker, ischemic dilated cardiomyopathy with left ventricular assistive ice in place, COPD, prior CVA, and CKD presented to [facility] on 11/28/17 with complaints of progressive weakness, presyncope, and hematochezia with mild abdominal pain. He reported that he has been feeling lightheadedness and presyncope for about 6 months now but thinks it has been worsening in the past several weeks. He has also begun to notice greater hematochezia in the past few weeks. A CT of his abdomen did not show any acute abnormalities and his vital signs remained stable. He was evaluated by GI and was felt that patient needed colonoscopy. Because of his Coumadin, he had an elevated INR. His Coumadin was held and colon prep began. After 2 days his INR was low enough for potential colonoscopy , but when evaluated by anesthesiology it was felt that patient was unsafe to proceed with this procedure at this time due to the presence of LVAD. Cardiology at [facility] was spoken to and they were uncomfortable handling the patient here due to their experience with a LVAD. Patient was to be transferred to [facility] for further workup and evaluation of his presyncope and hematochezia. We spoke with one of his superintendent car construction at [facility], Dr. Salazar, who stated that he had been worked up many times very thoroughly for his lightheadedness and presyncope that they were unsure of the cause. In regards to his reported hematochezia, there is no fecal occult blood on record, his hemoglobin had remained stable over several days. Patient had no abnormalities seen in his vital signs and Dr. Salazar did not feel any further workup with current [facility] acutely. She felt that his concerns to BE addressed as outpatient and recommended discharge with follow-up in 1-2 weeks with his superintendent car construction at [facility]. Patient describes having some financial limitations at home and is interested in potential resources might be available to him. He states he is very frustrated with having the LVAD as it seems less and less providers are willing to work with it due to experience. He is significantly concerned this is with him between "a rock at hard place." Patient was seen by social work and provided resources regarding programs and associate financial representative to might be available to him. He declined being evaluated by PT/OT as inpatient and felt this to be taking care of at home, despite knowing the potential risk of falling while on Coumadin. He will likely require home health due to his continued lightheadedness and overall deconditioning with LVAD limiting his ability to leave the home. Discharge discussed with: patient - Time Spent with Patient Total time spent providing and/or coordinating discharge services: - Discharge Medications Home Medications: Amiodarone [Cordarone] 100 mg PO DAILY 11/28/17 [History] Aspirin [Lo-Dose Aspirin EC] 81 mg PO DAILY 11/28/17 [History] Atorvastatin [Lipitor] 40 mg PO HS 11/28/17 [History] BuPROPion [Wellbutrin] 100 mg PO BID 11/28/17 [History] Bumetanide [Bumex] 2 mg PO BID PRN 11/28/17 [History] HydrOXYzine Pamoate [Vistaril] 50 mg PO TID 11/28/17 [History] Metoprolol [Lopressor] 25 mg PO DAILY 11/28/17 [History] Ondansetron [Zofran ODT] 8 mg SL BID 11/28/17 [History] Oxycodone HCl/Acetaminophen [Percocet 5-325 mg Tablet] 1 each PO Q4H 11/28/17 [ History] Potassium Chloride 40 meq PO BID 11/28/17 [History] Spironolactone [Aldactone] 25 mg PO DAILY 11/28/17 [History] Hydralazine HCl 50 mg PO BID 11/29/17 [History] Ipratropium/Albuterol Sulfate [Combivent Respimat Inhal [place]] 1 puff IH QID 09/06 [History] LORazepam [Lorazepam] 2 mg PO DAILY PRN 11/29/17 [History] Sulfamethoxazole/Trimeth SS [Bactrim SS] 1 tab PO DAILY 11/29/17 [History] Warfarin [Coumadin] 6 mg PO TUTH 11/29/17 [History] Warfarin [Coumadin] 8 mg PO SUMOWEFRSA 11/29/17 [History] Allergies/Adverse Reactions: 3 Allergy/AdvReac Type Severity Reaction Status Date / Time carvedilol Allergy Severe Anaphylaxis Verified 11/30/17 14:24 furosemide [From Lasix] Allergy Severe Anaphylaxis Verified 11/30/17 14:22 nitroglycerin Allergy Severe Anaphylaxis Verified 11/30/17 14:24 aspirin Allergy Mild Anaphylaxis Verified 11/30/17 14:23 Enoxaparin [From Lovenox] Allergy Itching Verified 03/05/18 15:43 lisinopril Allergy Itching Verified 11/22/17 15:43 Date of admission: 11/28/17 18:24 Primary care physician: Damir Song DO Consults: 11/28/17 18:43 Consult to Gastroenterology [CONS] Routine Consulting Provider: Scot[facility] Anai Reason for Consult: GIB Call Completed: No Discharging clinician: Luis Manuel Hutson Anticipated date of discharge: 12/02/17 - Constitutional Vitals: Temp Pulse Resp BP Pulse Ox 97.6 F 80 16 90/78 96 12/01/17 09:08 12/01/17 09:10 12/01/17 09:08 12/01/17 09:08 12/01/17 09:08 General appearance: Present: A&O X 3, pleasant, no acute distress, underweight, answers questions appropriately Exam: General: Cooperative, pleasant, no acute distress, alert and oriented 3, answers questions appropriately HEENT: Normocephalic, atraumatic, neck supple, trachea midline, Conjunctiva pink , sclera anicteric, oral mucosa moist, no orophargeal erythema or exudates Respiratory: No accessory muscle usage, clear to auscultation bilaterally, difficult to auscultate due to presence of LVAD Cardiovascular: LVAD present, continuous with periodic bump sound GI/abdominal: Nondistended, soft, normal bowel sounds, no peritoneal signs, LVAD leads present in right anterior abdomen, mild tenderness to palpation Extremities: No calf tenderness, noncyanotic, no pedal edema appreciated, warm, lower extremity pulses palpable and symmetrical Neurological: Alert and oriented 3, no facial droop, no focal deficits Skin: Dry, intact, normal color - Patient Status Disposition: Home Health Service Condition: Fair Functional capacity at discharge: independent ambulation Overall status at discharge: patient is progressing back to baseline - Discharge Instructions Follow Up With: Damir Song DO [Primary Care Provider] - 12/06/17 10:20 am (PLEASE SO UP FOR THIS APPOINTMENT, IF YOU CAN NOT MAKE IT TO THIS APPOINTMENT PLEASE CALL [phone] TO CANCEL 24 HOURS PRIOR TO THE APPOINTMENT. TAKE WITH YOU A LIST OF MEDICATIONS, INSURANCE CARD, PICTURE ID. DR. NAVARRO OFFICE IS LOCATED IN THE [facility] FROM [facility] ) Lavern Linton MD [Partnered Physician] - 12/30/17 3:50 pm () - Diet and Activity Activity: as per physical therapy, resume usual activities as tolerated Diet: low fat, low cholesterol <Raul Jalloh H - Last Filed: 12/02/17 13:05> Date of Encounter: 12/02/17 - Discharge Diagnosis (1) Generalized weakness Status: Acute (2) GI bleed Status: Suspected Qualifiers: GI bleed type/associated pathology: unspecified gastrointestinal hemorrhage type Qualified Code(s): K92.2 - Gastrointestinal hemorrhage, unspecified (3) CHF (congestive heart failure) Status: Chronic Qualifiers: Heart failure type: systolic Heart failure chronicity: chronic Qualified Code(s): I50.22 - Chronic systolic (congestive) heart failure (4) Atrial fibrillation Status: Chronic Qualifiers: Atrial fibrillation type: paroxysmal Qualified Code(s): I48.0 - Paroxysmal atrial fibrillation (5) HTN (hypertension) Status: Chronic Qualifiers: Hypertension type: unspecified Qualified Code(s): I10 - Essential (primary ) hypertension (6) DVT prophylaxis Status: Acute (7) Presence of left ventricular assist device (LVAD) Status: Chronic Hospital course: Mr. Scruggs is a 56 year old male - Time Spent with Patient Total time spent providing and/or coordinating discharge services: Date of admission: 12/01/17 16:00 Primary care physician: Damir Song, DO Consults: 12/02/17 06:48 Consult to Physical Therapy [CONS] Routine Comment: Evaluate, develop and implement POC Reason for Consult: Evaliation of patient for potential home health needs Does patient have active BEDREST order?: No Is patient medically & hemodynamically stable?: Yes - Constitutional Vitals: Temp Pulse Resp BP Pulse Ox 99.0 F 80 16 83/61 98 12/02/17 08:35 12/02/17 08:35 12/02/17 08:35 12/02/17 08:35 12/02/17 08:35 - Attending Attestation near syncope, unclear etiology PT OT consulted ( patient not willing to wait for conusult, riks of falling and were discussed) to asses safety at home since [facility] was recommending to send him home and to have a follow up as outpatinet. Rectal bleed has subsided, Hb stable above 13. Can follow up with [facility] for a colonoscopy I examined this patient and my medical decision-making was reviewed with the Resident Physician. I agree with the documented findings, disposition and treatment plan as described except to the extent set forth below. On coumadin time spent 40 min I examined this patient and my medical decision-making was reviewed with the Resident Physician. I agree with the documented findings, disposition and treatment plan as described except to the extent set forth below.
--- NOTE | 2017-12-01 15:23 | Internal Med Progress Note ---
<Luis Manuel Hutson - Last Filed: 12/01/17 15:18> Date of Encounter: 12/01/17 Time of Encounter: 13:10 - Assessment and plan (1) Generalized weakness Current Visit: Yes Status: Acute Assessment and plan: Unclear etiology, patient reports feeling generalized weakness for months that has become worse recently Workup was unremarkable so far, though patient reports hematachezia No obvious signs of infection Patient afebrile, white blood cell count normal, UA unremarkable, chest x- ray unremarkable, and CT abdomen/pelvis negative Renal function at baseline Patient reports bloody stools H&H is stable He was given 500 mL bolus in the ED Recommend caution with further fluids given his known low ejection fraction of 15% Anesthesiology was not comfortable performing sedation on this patient [facility]ology spoken to, patient has received thorough workup for this issue and recommend discharge patient will follow up with [facility] in 1-2 weeks PTOT evaluation Social work evaluation (2) GI bleed Current Visit: Yes Status: Suspected Assessment and plan: Patient reports hematochezia No fecal occult blood performed Hemoglobin and hematocrit stable Patient nothing by mouth except for bowel prep for colonoscopy today We will change patient to 40 mg by mouth omeprazole Recommendation follow-up with [facility] in 1-2 weeks Qualifiers: GI bleed type/associated pathology: unspecified gastrointestinal hemorrhage type Qualified Code(s): K92.2 - Gastrointestinal hemorrhage, unspecified (3) CHF (congestive heart failure) Current Visit: No Status: Chronic Assessment and plan: Chronic congestive heart failure from ischemic dilated cardiomyopathy LVAD in place Resume home medications Caution with additional IVF Qualifiers: Heart failure type: systolic Heart failure chronicity: chronic Qualified Code(s): I50.22 - Chronic systolic (congestive) heart failure (4) Atrial fibrillation Current Visit: No Status: Chronic Assessment and plan: Currently therapeutic INR Coumadin on hold for colonoscopy Resume home Coumadin Qualifiers: Atrial fibrillation type: paroxysmal Qualified Code(s): I48.0 - Paroxysmal atrial fibrillation (5) HTN (hypertension) Current Visit: No Status: Chronic Assessment and plan: Stable Resume home medications Qualifiers: Hypertension type: unspecified Qualified Code(s): I10 - Essential (primary ) hypertension (6) DVT prophylaxis Current Visit: No Status: Acute Assessment and plan: INR 1.[address] resume coumadin (7) Presence of left ventricular assist device (LVAD) Current Visit: Yes Status: Chronic - Subjective Interval history: Patient reports having significant frustration regarding providers not wanting to work with him. He still is significantly concerned about his lightheadedness , dizziness, and blurred vision that is partially worse when standing. Because of the bowel prep she continues not been ill with report any continued hematochezia. He also reports having continued mild abdominal pain and loss of appetite. - Constitutional Vitals: Temp Pulse Resp BP Pulse Ox 97.0 F L 80 16 84/50 90 12/01/17 11:25 12/01/17 12:05 12/01/17 12:05 12/01/17 12:05 12/01/17 11:25 General appearance: Present: A&O X 3, pleasant, no acute distress, underweight, answers questions appropriately Exam: General: Cooperative, pleasant, no acute distress, alert and oriented 3, answers questions appropriately HEENT: Normocephalic, atraumatic, neck supple, trachea midline, Conjunctiva pink , sclera anicteric, oral mucosa moist, no orophargeal erythema or exudates, edentulous Respiratory: No accessory muscle usage, clear to auscultation bilaterally, difficult to auscultate due to presence of LVAD Cardiovascular: LVAD present GI/abdominal: Nondistended, soft, normal bowel sounds, no peritoneal signs, LVAD leads present in right anterior abdomen, mild tenderness to palpation Extremities: No calf tenderness, noncyanotic, no pedal edema appreciated, warm, lower extremity pulses palpable and symmetrical Neurological: Alert and oriented 3, no facial droop, no focal deficits Skin: Dry, intact, normal color Internal Medicine: Result - Labs CBC & Chem 7: 12/01/17 03:13 12/01/17 03:13 Labs: Short CBC 12/01/17 Range/Units 03:13 WBC 7.5 (4.3-11.1) K/mcL Hgb 13.2 (12.9-16.9) g/dL Hct 43.3 (37.5-50.1) % Plt Count 186 (140-400) K/mcL Neutrophils # 5.3 (1.6-8.9) K/mcL BMP 11/30/17 12/01/17 14:07 03:13 Sodium 140 140 Potassium 3.6 3.8 Chloride 106 107 Carbon Dioxide 26 25 BUN 21 H 21 H Creatinine 1.59 H 1.69 H Glucose 108 H 116 H Calcium 8.9 9.0 - ABG Interpretation ABG results: PT/INR, D-dimer PT 21.0 Seconds (9.4-12.1) H 12/01/17 03:13 Consult Discharge Plan - Plan Referrals: Damir Song DO [Primary Care Provider] - ([place] going [place] no PCP appointment needed) Lavern Linton MD [Partnered Physician] - 12/30/17 3:50 pm () <Raul Jalloh H - Last Filed: 12/01/17 15:59> Date of Encounter: 12/01/17 - Assessment and plan (1) Generalized weakness Current Visit: Yes Status: Acute (2) GI bleed Current Visit: Yes Status: Suspected Qualifiers: GI bleed type/associated pathology: unspecified gastrointestinal hemorrhage type Qualified Code(s): K92.2 - Gastrointestinal hemorrhage, unspecified (3) CHF (congestive heart failure) Current Visit: No Status: Chronic Qualifiers: Heart failure type: systolic Heart failure chronicity: chronic Qualified Code(s): I50.22 - Chronic systolic (congestive) heart failure (4) Atrial fibrillation Current Visit: No Status: Chronic Qualifiers: Atrial fibrillation type: paroxysmal Qualified Code(s): I48.0 - Paroxysmal atrial fibrillation (5) HTN (hypertension) Current Visit: No Status: Chronic Qualifiers: Hypertension type: unspecified Qualified Code(s): I10 - Essential (primary ) hypertension (6) DVT prophylaxis Current Visit: No Status: Acute (7) Presence of left ventricular assist device (LVAD) Current Visit: Yes Status: Chronic - Constitutional Vitals: Temp Pulse Resp BP Pulse Ox 97.0 F L 79 18 84/50 90 12/01/17 11:25 12/01/17 15:49 12/01/17 15:49 12/01/17 12:05 12/01/17 11:25 Internal Medicine: Result - Labs CBC & Chem 7: 12/01/17 03:13 12/01/17 03:13 Labs: Short CBC 12/01/17 Range/Units 03:13 WBC 7.5 (4.3-11.1) K/mcL Hgb 13.2 (12.9-16.9) g/dL Hct 43.3 (37.5-50.1) % Plt Count 186 (140-400) K/mcL Neutrophils # 5.3 (1.6-8.9) K/mcL BMP 12/01/17 03:13 Sodium 140 Potassium 3.8 Chloride 107 Carbon Dioxide 25 BUN 21 H Creatinine 1.69 H Glucose 116 H Calcium 9.0 - ABG Interpretation ABG results: PT/INR, D-dimer PT 21.0 Seconds (9.4-12.1) H 12/01/17 03:13 - Attending Attestation near syncope, unclear etiology PT OT consult to asses safety at home since [facility] recommending to send him home and to have a follow up as outpatinet. Rectal bleed has subsided, Hb stable above 13. Can follow up with [facility] for a colonoscopy I examined this patient and my medical decision-making was reviewed with the Resident Physician. I agree with the documented findings, disposition and treatment plan as described except to the extent set forth below. On coumadin I examined this patient and my medical decision-making was reviewed with the Resident Physician. I agree with the documented findings, disposition and treatment plan as described except to the extent set forth below.
[2017-12-01] MEDS ORDERED: *HR* Warfarin 4 MG TABLET PO SCH (18:00)
[2017-12-01] MEDS: Albuterol 2.5 MG/3 ML NEBULIZER IH PRN (21:51)
[2017-12-02 07:08] LABS: INR 2.8; Prothrombin Time 30.6 Seconds (9.4-12.1)
[2017-12-02 07:31] LABS: Hematocrit 42.3 % (37.5-50.1); Hemoglobin 13.1 g/dL (12.9-16.9)
[2017-12-02] MEDS: hydrALAZINE 25 MG TABLET PO SCH (08:37)
[2017-12-02] MEDS: Sulfamethoxazole/Trimeth SS 1 TAB PO SCH (08:37)
[2017-12-02] MEDS: hydrOXYzine pamoate 25 MG CAPSULE PO SCH (08:37)
[2017-12-02] MEDS: *HR* Amiodarone 200 MG TABLET PO SCH (08:38)
[2017-12-02] MEDS: Bumetanide 1 MG TABLET PO SCH (08:38)
[2017-12-02] MEDS: Spironolactone 25 MG TABLET PO SCH (08:38)
[2017-12-02 08:56] VITALS: BP 83/61
--- NOTE | 2017-12-02 09:24 | Physician Discharge Referral ---
<Naveed Hutsonel - Last Filed: 12/02/17 09:23> Home Health/Hosp Referral Info Transfer to: Home Health Provider in Charge Post Discharge: PCP - Diagnosis (1) Generalized weakness Priority: Primary Status: Acute (2) GI bleed Priority: Primary Status: Suspected (3) CHF (congestive heart failure) Priority: Primary Status: Chronic (4) Atrial fibrillation Priority: Primary Status: Chronic (5) HTN (hypertension) Priority: Primary Status: Chronic (6) DVT prophylaxis Priority: Secondary Status: Acute (7) Presence of left ventricular assist device (LVAD) Priority: Primary Status: Chronic - Respiratory Orders Smoking Cessation: Smoking cessation has been advised. For more information, call the [place] Tobacco Quit Line at 8-940-YSUA-NOW. - Diet/Nutrition Diet/Nutrition Orders: Cardiac - Activity Activity Orders: Up ad isela, Ambulate - Services Needed Following services are medically necessary services: Nursing, Physical Therapy, Occupational Therapy - Transfer Medications Home Medications: Amiodarone [Cordarone] 100 mg PO DAILY 11/28/17 [History] Aspirin [Lo-Dose Aspirin EC] 81 mg PO DAILY 11/28/17 [History] Atorvastatin [Lipitor] 40 mg PO HS 11/28/17 [History] BuPROPion [Wellbutrin] 100 mg PO BID 11/28/17 [History] Bumetanide [Bumex] 2 mg PO BID PRN 11/28/17 [History] HydrOXYzine Pamoate [Vistaril] 50 mg PO TID 11/28/17 [History] Metoprolol [Lopressor] 25 mg PO DAILY 11/28/17 [History] Ondansetron [Zofran ODT] 8 mg SL BID 11/28/17 [History] Oxycodone HCl/Acetaminophen [Percocet 5-325 mg Tablet] 1 each PO Q4H 11/28/17 [ History] Potassium Chloride 40 meq PO BID 11/28/17 [History] Spironolactone [Aldactone] 25 mg PO DAILY 11/28/17 [History] Hydralazine HCl 50 mg PO BID 11/29/17 [History] Ipratropium/Albuterol Sulfate [Combivent Respimat Inhal [place]] 1 puff IH QID 09/06 [History] LORazepam [Lorazepam] 2 mg PO DAILY PRN 11/29/17 [History] Sulfamethoxazole/Trimeth SS [Bactrim SS] 1 tab PO DAILY 11/29/17 [History] Warfarin [Coumadin] 6 mg PO TUTH 11/29/17 [History] Warfarin [Coumadin] 8 mg PO SUMOWEFRSA 11/29/17 [History] Allergies/Adverse Reactions: 3 Allergy/AdvReac Type Severity Reaction Status Date / Time carvedilol Allergy Severe Anaphylaxis Verified 11/30/17 14:24 furosemide [From Lasix] Allergy Severe Anaphylaxis Verified 11/30/17 14:22 nitroglycerin Allergy Severe Anaphylaxis Verified 11/30/17 14:24 aspirin Allergy Mild Anaphylaxis Verified 11/30/17 14:23 Enoxaparin [From Lovenox] Allergy Itching Verified 11/22/17 15:43 lisinopril Allergy Itching Verified 11/22/17 15:43 Certification: Further, I certify that my clinical findings support that this patient is homebound (i.e. absences from home require considerable and taxing effort and are for medical reasons or congregation services or infrequently or short duration when for other reasons) because: Homebound Reason: Patient requires assistance of a person or device to safely leave home, Leaving home requires considerable and taxing effort due to condition Attestation: My signature below is to certify that this patient is under my care and that I, or nurse practitioner, or a physician's assistant cook working with me, has a face-to -face encounter with this patient. <Raul Jalloh H - Last Filed: 12/02/17 13:18> - Diagnosis (1) Generalized weakness Status: Acute (2) GI bleed Status: Suspected (3) CHF (congestive heart failure) Status: Chronic (4) Atrial fibrillation Status: Chronic (5) HTN (hypertension) Status: Chronic (6) DVT prophylaxis Status: Acute (7) Presence of left ventricular assist device (LVAD) Status: Chronic - Respiratory Orders Smoking Cessation: Smoking cessation has been advised. For more information, call the [place] Tobacco Quit Line at 6-390-HLGS-NOW. Certification: Further, I certify that my clinical findings support that this patient is homebound (i.e. absences from home require considerable and taxing effort and are for medical reasons or congregation services or infrequently or short duration when for other reasons) because: Attestation: My signature below is to certify that this patient is under my care and that I, or nurse practitioner, or a physician's assistant cook working with me, has a face-to -face encounter with this patient.
== END 2017-12-02 11:39 | disposition home health service (06) | DRG 378 ==
LOC: EMEROO 15:32 → 2NNU 15:32
PROVIDERS: ADMIT Internal Medicine; ATTEND Internal Medicine